=== PATIENT | male | born 1990 | race Caucasian/White ===

== ENCOUNTER 2020-12-06 12:37 | Emergency (ER) | payer OTHER ==
[~2020-12-06] VITALS: Ht 177.8 cm; Wt 86.2 kg
[2020-12-06] MEDS ORDERED: LISINOPRIL10 MG PO (12:47)
[2020-12-06] MEDS ORDERED: TEGRETOL200 MG PO (12:47)
[2020-12-06] MEDS ORDERED: ZOLOFT 50 MG TA50 MG PO (12:47)
[2020-12-06 12:58] LABS: URINE BILIRUBIN NEGATIVE (Negative); URINE BLOOD NEGATIVE (Negative); URINE CLARITY CLEAR; URINE COLOR YELLOW; URINE GLUCOSE-RANDOM NEGATIVE (Negative); URINE KETONES NEGATIVE (Negative); URINE LEUKOCYTES-REFLEX NEGATIVE (Negative); URINE NITRITE-REFLEX NEGATIVE (Negative); URINE PROTEIN NEGATIVE (Negative); URINE SPECIFIC GRAVITY 1.015 (1.005-1.030); URINE UROBILINOGEN 0.2 E.U./dl (0.2-1.0)
[2020-12-06 13:07] LABS: ABSOLUTE EOSINOPHILS 0.1 thou/uL (0.0-0.7); ABSOLUTE LYMPHOCYTES 1.5 thou/uL (0.8-5.3); ABSOLUTE MONOCYTES 0.5 thou/uL (0.0-1.2); ABSOLUTE NEUTROPHILS 4.8 thou/uL (1.6-8.1); BASOPHILS 0.4 %; EOSINOPHILS 0.9 %; HEMATOCRIT 47.1 % (42.0-52.0); HEMOGLOBIN 16.2 gm/dL (14.0-18.0); LYMPHOCYTES 21.2 %; MCH 31.6 pg (26.0-34.0); MCHC 34.4 g/dL (28.0-37.0); MCV 91.8 fL (80.0-100.0); MONOCYTES 7.5 %; MPV 8.9 fl. (7.2-11.1); NUCLEATED RBCS 0 /100WBC; PLATELET COUNT* 159 thou/uL (150-400); RBC 5.12 mil/uL (4.50-6.00); RDW-CV 12.6 % (10.5-14.5); WBC 6.9 thou/uL (4.0-11.0)
[2020-12-06 13:22] LABS: CALCIUM 9.4 mg/dL (8.5-10.1); CREATININE 0.8 mg/dL (0.6-1.3); POTASSIUM 4.3 mmol/L (3.5-5.1)
[2020-12-06 13:27] LABS: ALBUMIN 4.3 g/dL (3.4-5.0); TOTAL BILIRUBIN 0.4 mg/dL (<0.1-1.0)
[2020-12-06] MEDS ORDERED: BENTYL 10 MG CA10 M1 PO (15:12)
[2020-12-06 15:20] VITALS: BP 130/78
== END 2020-12-06 15:21 | disposition home or self-care (01) ==
LOC: M.ERS 12:37
PROVIDERS: Nurse Practitioner Family
DX: K63.89 Other specified diseases of intestine (principal); I10 Essential (primary) hypertension

== ENCOUNTER 2021-01-13 18:14 | Emergency (ER) | payer OTHER ==
[~2021-01-13] VITALS: Ht 180.3 cm; Wt 81.7 kg
[~2021-01-13 18:14] MED LIST: BENTYL 10 MG CA10 M1 PO; LISINOPRIL10 MG PO; TEGRETOL200 MG PO; ZOLOFT 50 MG TA50 MG PO
[2021-01-13] MEDS ORDERED: GEODON20 MG PO (18:20)
[2021-01-13] MEDS ORDERED: ATENOLOL 25 MG25 M1 PO (18:20)
[2021-01-13] MEDS ORDERED: XANAX 0.5 MG0.5 MG PO (19:10)
[2021-01-13] MEDS ORDERED: VISTARIL 25 MG25 M1 PO (19:10)
[2021-01-13 19:19] VITALS: BP 149/68
== END 2021-01-13 19:20 | disposition home or self-care (01) ==
LOC: M.ERS 18:14
DX: F41.0 Panic disorder [episodic paroxysmal anxiety] (principal); I10 Essential (primary) hypertension